=== PATIENT | female | born 1935 | race Caucasian/White ===

== ENCOUNTER → 2016-09-07 | Outpatient (CLI) | payer OTHER ==
[~2016-09-07] MED LIST: APIX5TAB PO; ASP81CT PO; ASPI-860 PO; CHOL100045 PO; CYAN500T2 PO; HYDR-3702 PO; LACT1CAP62 PO; METO-270 PO; MIRALAX 17 GM P17 GM PO; MULT-954 PO; ONDAN4ODT PO; PSYL1PAC10 PO; TRAM-25 PO; URSO300C3 PO; ZOLE5INF IV; [UNRECOGNIZED DRUG - CODE] PO
[2016-09-07 08:47] LABS: BASOPHILS % (AUTO) 2 % (0-2); EOSINOPHILS # (AUTO) 0.2 10^3uL; EOSINOPHILS % (AUTO) 6 % (0-4); LYMPHOCYTES # (AUTO) 0.9 X10^3; MEAN CORPUSCULAR HGB CONC 35.2 g/dL (31.0-37.0); MEAN PLATELET VOLUME 9.3 FL (6.0-9.5); MONOCYTES # (AUTO) 0.3 X10^3; MONOCYTES % (AUTO) 8 % (3-11); NEUTROPHILS # (AUTO) 2.1 X10^3; NEUTROPHILS % (AUTO) 60 % (51-67); PLATELET COUNT 402 10^3uL (150-450); WHITE BLOOD COUNT 3.53 10^3uL (4.0-11.0)
[2016-09-07 08:48] LABS: MEAN CORPUSCULAR HEMOGLOBIN 34.6 PG (26.0-34.0); MEAN CORPUSCULAR VOLUME 98 FL (80-100)
[2016-09-07 09:21] LABS: ALBUMIN 4.1 g/dL (3.4-5.0); ANION GAP 12.6 MEQ/L (3-15); CALCULATED IONIZED CALCIUM 4.1 mg/dL (3.8-4.6); TOTAL PROTEIN 6.7 g/dL (6.4-8.5)
== END ==
LOC: LAB 08:31
PROVIDERS: ATTEND Internal Medicine
DX: Z00.00 Encounter for general adult medical examination without abnormal findings (principal); D64.89 Other specified anemias; G64 Other disorders of peripheral nervous system; E03.8 Other specified hypothyroidism
CPT/HCPCS: 36415; 80053; 80061; 82607; 84439; 84443; 85025